=== PATIENT | male | born 1960 | race Caucasian/White ===

== ENCOUNTER 2019-01-26 18:44 | Inpatient (IN) | payer OTHER ==
[~2019-01-26] VITALS: Ht 185.4 cm; Wt 91.0 kg
[~2019-01-26 18:44] MED LIST: HTN MEDICATION; MIGRAINE MEDICATION
--- NOTE | 2019-01-26 19:09 | NUR ---
DR ESCALERA BS FOR EXAM. PT C/O COUGH X 3 WKS. DENIES PNEUMONIA. ADMITS ABD PAIN R/T COUGHING. HX: COLON CA.
--- NOTE | 2019-01-26 19:16 | NUR ---
PT A&OX4, DIFFICULTY BREATHING, SOB W/ COUGHING & EXERTION, SPEECH CLEAR.STATES HE'S TRIED OTC COUGH & COLD MEDICINES W/OUT RELIEF. DENIES TAKING ANTIPYRETICS TODAY. PT'S SISTER IN ROOM
--- NOTE | 2019-01-26 19:29 | NUR ---
EKG & CXR DONE. RESP TX COMPLETED. LAB AT BS
[2019-01-26] MEDS ORDERED: ALBUTEROL/IPRATROPIUM 2.5MG/0.5MG, 3 ML NPPB ONE (19:30)
[2019-01-26] MEDS ORDERED: ONDANSETRON 2MG/ML, 2ML IVPush ONE (19:30)
[2019-01-26] MEDS ORDERED: methylPREDNISolone SOD SUCC 125 MG/2 ML IV ONE (19:30)
[2019-01-26] MEDS ORDERED: ACETAMINOPHEN 325 MG TABLET PO ONE (19:30)
[2019-01-26] MEDS ORDERED: SODIUM CHLORIDE 0.9% 1,000ML IVBOLUS ONE (19:30)
[2019-01-26] MEDS ORDERED: KETOROLAC 30 MG/1 ML IVPush ONE (19:30)
[2019-01-26] MEDS ORDERED: SODIUM CHLORIDE FLUSH 10ML SYR IVF ONE (19:30)
[2019-01-26] MEDS ORDERED: methylPREDNISolone SOD SUCC 125 MG/2 ML ONE (19:45)
[2019-01-26] MEDS ORDERED: ACETAMINOPHEN 325 MG TABLET ONE (19:46)
[2019-01-26] MEDS ORDERED: KETOROLAC 30 MG/1 ML ONE (19:46)
[2019-01-26] MEDS ORDERED: ONDANSETRON 2MG/ML, 2ML ONE (19:46)
[2019-01-26 19:48] LABS: BASOPHILS # (AUTO) 0.01 x10^3/uL (0-0.1); BASOPHILS % (AUTO) 0 % (0-1); EOSINOPHILS % (AUTO) 0 % (1-7); LYMPHOCYTES # (AUTO) 1.05 x10^3/uL (1-3.4); LYMPHOCYTES % (AUTO) 17 % (22-44); MD NO; MEAN CORPUSCULAR HEMOGLOBIN 28.9 pg (27.5-34.5); MEAN CORPUSCULAR HGB CONC 32.9 g/dL (33.2-36.2); MEAN PLATELET VOLUME 9.7 fL (7.4-10.4); MONOCYTES # (AUTO) 0.56 x10^3/uL (0.2-0.8); MONOCYTES % (AUTO) 9 % (2-9); NEUTROPHILS # (AUTO) 4.72 x10^3/uL (1.8-6.8); NEUTROPHILS % (AUTO) 74 % (42-75); PLATELET COUNT 176 x10^3/uL (130-400); RED BLOOD COUNT 5.52 x10^6/uL (4.38-5.82); RED CELL DISTRIBUTION WIDTH 13.8 % (9.4-14.8)
[2019-01-26 19:52] LABS: ALANINE AMINOTRANSFERASE 30 U/L (12-78); ALBUMIN 3.2 g/dL (3.4-5.0); ANION GAP 6 mmol/L (5-15); CHLORIDE 104 mmol/L (98-107)
[2019-01-26 19:54] LABS: ALKALINE PHOSPHATASE 84 U/L (45-117); BILIRUBIN,TOTAL 0.3 mg/dL (0.2-1.0); TOTAL PROTEIN 6.9 g/dL (6.4-8.2)
--- NOTE | 2019-01-26 19:55 | NUR ---
O2 SAT 88-90% RA. OXYGEN APPLIED 2LNC. SAT INCREASED TO 92
[2019-01-26] MEDS ORDERED: CEFTRIAXONE PMX 1GM/50ML 50 ML ONE (20:14)
--- NOTE | 2019-01-26 20:22 | NUR ---
ROCEPHIN HUNG; INFUSING AT 100 ML/HR VIA PUMP. 1ST LITER NS INFUSED; 2ND LITER HUNG. IV SITE PATENT.
[2019-01-26] MEDS ORDERED: AZITHROMYCIN 500 MG in SODIUM CHLORIDE 0.9% 250 ML IVPB ONE (20:30)
[2019-01-26] MEDS ORDERED: CEFTRIAXONE PMX 1GM/50ML 50 ML IVPB ONE (20:30)
--- NOTE | 2019-01-26 21:03 | NUR ---
ROCEPHIN INFUSED. ZITHROMAX JUAN ANTONIO; INFUSING AT 250ML/HR VIA PUMP. NS INFUSING W-O. IV SITE PATENT.
--- NOTE | 2019-01-26 21:06 | NUR ---
2ND LITER NS INFUSED. 3RD LITER HUNG; INFUSING W-O TO COMPLETE 2600 ML BOLUS.
--- NOTE | 2019-01-26 21:12 | NUR ---
PT REPORT TO YOLANDA REINOSO FOR ROOM [id number]
[2019-01-26 22:13] VITALS: BP 114/66
[2019-01-27] MEDS ORDERED: GUAIFENESIN/DM 200-20MG, 10ML UDC PO PRN
[2019-01-27] MEDS ORDERED: TEMAZEPAM 15 MG CAPSULE PO PRN
[2019-01-27] MEDS ORDERED: DOCUSATE 100 MG CAPSULE PO PRN
[2019-01-27] MEDS ORDERED: ONDANSETRON ODT 4 MG PO PRN
[2019-01-27] MEDS ORDERED: CEFTRIAXONE PMX 1GM/50ML 50 ML IV ONE
[2019-01-27] MEDS ORDERED: LIDODERM 5% PATCH TD PRN
[2019-01-27] MEDS: KETOROLAC 30 MG/1 ML IV PRN (00:16)
[2019-01-27] MEDS: SODIUM CHLORIDE 0.9% 1,000 ML IV SCH ×3 (00:17→20:36)
[2019-01-27] MEDS: ENOXAPARIN 40 MG/0.4 ML SQ SCH ×2 (00:17→23:59)
[2019-01-27] MEDS ORDERED: ALBUTEROL SULFATE 2.5 MG/3 ML NPPB PRN (00:30)
[2019-01-27 01:13] VITALS: BP 132/82
[2019-01-27 03:03] LABS: RAPID INFLUENZA A Negative (Negative); RAPID INFLUENZA B Negative (Negative)
[2019-01-27 05:50] LABS: BASOPHILS % (AUTO) 0 % (0-1); EOSINOPHILS # (AUTO) 0.01 x10^3/uL (0-0.4); EOSINOPHILS % (AUTO) 0 % (1-7); LYMPHOCYTES # (AUTO) 0.48 x10^3/uL (1-3.4); LYMPHOCYTES % (AUTO) 13 % (22-44); MD NO; MEAN CORPUSCULAR HEMOGLOBIN 29.2 pg (27.5-34.5); MEAN CORPUSCULAR HGB CONC 32.3 g/dL (33.2-36.2); MEAN CORPUSCULAR VOLUME 90.4 fL (81-97); MONOCYTES # (AUTO) 0.13 x10^3/uL (0.2-0.8); MONOCYTES % (AUTO) 4 % (2-9); NEUTROPHILS # (AUTO) 3.19 x10^3/uL (1.8-6.8); NEUTROPHILS % (AUTO) 84 % (42-75); PLATELET COUNT 168 x10^3/uL (130-400); RED BLOOD COUNT 5.12 x10^6/uL (4.38-5.82); RED CELL DISTRIBUTION WIDTH 13.9 % (9.4-14.8)
[2019-01-27 06:03] LABS: ANION GAP 8 mmol/L (5-15); CALCIUM 7.8 mg/dL (8.5-10.1); CHLORIDE 108 mmol/L (98-107)
[2019-01-27 06:05] LABS: CREATININE 1.01 mg/dL (0.7-1.3)
[2019-01-27 07:40] VITALS: BP 156/95
[2019-01-27] MEDS: methylPREDNISolone SOD SUCC 40 MG/ML IV SCH ×3 (07:48→23:59)
[2019-01-27 12:54] VITALS: BP 163/95
[2019-01-27] MEDS ORDERED: ALBUTEROL/IPRATROPIUM 2.5MG/0.5MG, 3 ML ONE (17:05)
[2019-01-27] MEDS: ALBUTEROL/IPRATROPIUM 2.5MG/0.5MG, 3 ML NPPB SCH (18:26)
[2019-01-27 19:38] VITALS: BP 168/96
[2019-01-27] MEDS: CEFTRIAXONE PMX 2GM/50ML 50 ML IV SCH (20:36)
[2019-01-27] MEDS: AZITHROMYCIN 500 MG in SODIUM CHLORIDE 0.9% 250 ML IV SCH (21:24)
[2019-01-27] MEDS: ACETAMINOPHEN 325 MG TABLET PO PRN (23:59)
[2019-01-28 01:14] VITALS: BP 164/105
[2019-01-28] MEDS: SODIUM CHLORIDE 0.9% 1,000 ML IV SCH (06:17)
[2019-01-28 07:28] LABS: MEAN CORPUSCULAR HEMOGLOBIN 29.2 pg (27.5-34.5); MEAN CORPUSCULAR HGB CONC 32.5 g/dL (33.2-36.2); MEAN CORPUSCULAR VOLUME 89.7 fL (81-97); MEAN PLATELET VOLUME 9.3 fL (7.4-10.4); PLATELET COUNT 190 x10^3/uL (130-400); RED BLOOD COUNT 5.23 x10^6/uL (4.38-5.82); RED CELL DISTRIBUTION WIDTH 13.9 % (9.4-14.8)
[2019-01-28 07:35] LABS: ANION GAP 6 mmol/L (5-15); CALCIUM 8.2 mg/dL (8.5-10.1); CHLORIDE 110 mmol/L (98-107); CREATININE 0.85 mg/dL (0.7-1.3)
[2019-01-28 08:09] LABS: BASOPHILS % (AUTO) 0 % (0-1); EOSINOPHILS % (AUTO) 0 % (1-7); LYMPHOCYTES % (AUTO) 9 % (22-44); MD SCAN; MONOCYTES # (AUTO) 0.51 x10^3/uL (0.2-0.8); MONOCYTES % (AUTO) 6 % (2-9); NEUTROPHILS # (AUTO) 7.33 x10^3/uL (1.8-6.8); NEUTROPHILS % (AUTO) 85 % (42-75)
[2019-01-28] MEDS: methylPREDNISolone SOD SUCC 40 MG/ML IV SCH (08:29)
[2019-01-28] MEDS: ALBUTEROL/IPRATROPIUM 2.5MG/0.5MG, 3 ML NPPB SCH ×4 (08:30→18:54)
[2019-01-28] MEDS ORDERED: AMLODIPINE 5 MG TABLET PO SCH (09:00)
[2019-01-28 09:01] VITALS: BP 164/99
[2019-01-28 13:56] VITALS: BP 132/84
[2019-01-28 19:06] VITALS: BP 157/81
[2019-01-28] MEDS ORDERED: methylPREDNISolone SOD SUCC 40 MG/ML IV ONE (20:00)
[2019-01-28] MEDS: ACETAMINOPHEN 325 MG TABLET PO PRN (20:13)
[2019-01-28] MEDS: CEFTRIAXONE PMX 2GM/50ML 50 ML IV SCH (20:13)
[2019-01-28] MEDS: KETOROLAC 30 MG/1 ML IV PRN (21:04)
[2019-01-28] MEDS: AZITHROMYCIN 500 MG in SODIUM CHLORIDE 0.9% 250 ML IV SCH (21:04)
[2019-01-29] MEDS: ENOXAPARIN 40 MG/0.4 ML SQ SCH (00:46)
[2019-01-29 01:11] VITALS: BP 161/98
[2019-01-29] MEDS: AMLODIPINE 5 MG TABLET PO SCH ×2 (06:30→08:16)
[2019-01-29] MEDS: ALBUTEROL/IPRATROPIUM 2.5MG/0.5MG, 3 ML NPPB SCH ×2 (07:25→11:32)
[2019-01-29 08:16] VITALS: BP 148/87
[2019-01-29] MEDS: CEFTRIAXONE PMX 2GM/50ML 50 ML IV SCH (11:27)
[2019-01-29] MEDS ORDERED: FLU VACC QS2019-20 36MOS UP/PF 0.5 ML IM-VACC ONE (11:30)
[2019-01-29] MEDS ORDERED: AZIT500T PO (11:48)
[2019-01-29] MEDS ORDERED: METH4TAB2 PO (11:48)
[2019-01-29] MEDS ORDERED: CEFI400C PO (11:48)
[2019-01-29] MEDS: AZITHROMYCIN 500 MG in SODIUM CHLORIDE 0.9% 250 ML IV SCH (12:26)
[2019-01-29] MEDS ORDERED: ALBU18HF INH (14:37)
[2019-01-29] MEDS ORDERED: IPRA12.9 INH (14:37)
== END 2019-01-29 14:48 | disposition home or self-care (01) | DRG 871 ==
LOC: ED 21:20 → EDIP 21:57 → 3N 21:59 → DCLOUNGE 01-29 14:33
PROVIDERS: ADMIT Internal Medicine; ATTEND Internal Medicine
DX: A41.9 Sepsis, unspecified organism (principal); J18.9 Pneumonia, unspecified organism; J44.0 Chronic obstructive pulmonary disease with (acute) lower respiratory infection; J44.1 Chronic obstructive pulmonary disease with (acute) exacerbation; I10 Essential (primary) hypertension; J20.9 Acute bronchitis, unspecified; Z85.038 Personal history of other malignant neoplasm of large intestine; Z87.891 Personal history of nicotine dependence
CPT/HCPCS: 36415; 84145; 87400; 96361; 96365; 96367; 96375; 99285; J7620; 80048; 85025; 86756; 87070; 87205; 90686; 94640; G0378; J0456; J0696; J1650; J1885; J2405; J2920; J2930; J7030; J7050; J7512